=== PATIENT | male | born 1955 | race Hispanic/Latino ===

== ENCOUNTER → 2022-06-23 | Outpatient (CLI) | payer OTHER ==
[~2022-06-23] MED LIST: ALBU0.63 IH; ALOG25TA2 PO; AMLO-257 PO; ASPI-1012 PO; ATOR40TA71 PO; CHOL100018 PO; DEXT1DRO OP; ENAL-91 PO; FLUT15.845 NS; HYDR-4457 PO; LORA10TA7 PO; METF-527 PO; MOME13HF11 IH; SILD100T PO; UREA CREAM TP
== END | disposition home or self-care (01) ==
LOC: RAH 13:31
PROVIDERS: ATTEND Internal Medicine
DX: R13.10 Dysphagia, unspecified (principal)
CPT/HCPCS: 74230; 92611

== ENCOUNTER → 2022-09-30 | Outpatient (CLI) | payer OTHER | END | disposition home or self-care (01) | LOC: RAH 14:01 | PROVIDERS: ATTEND Internal Medicine | DX: I11.9 Hypertensive heart disease without heart failure (principal); R06.02 Shortness of breath; E11.9 Type 2 diabetes mellitus without complications | CPT/HCPCS: 93306 ==